=== PATIENT | male | born 1960 | race Caucasian/White ===

== ENCOUNTER 2019-03-15 21:49 | Emergency (ER) | payer SELFPAY ==
[2019-03-15 22:00] VITALS: BP 146/79; PULSE 72; TEMP 98.5; BMI 35.0
--- NOTE | 2019-03-15 22:02 | PDOC ---
History of Present Illness - General Chief Complaint: Injury Stated Complaint: LH 1ST FINGER INJURY Time Seen by Provider: 03/15/19 21:51 - History of Present Illness Initial Comments: This 58-year-old man with no significant past medical history presents with injury to his left thumb. 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 Bleeding was persistent despite direct pressure on the wound. No other injury sustained. Patient last tetanus prophylaxis was 4 years ago, also a mandoline injury of the left hand. No previous history of resistant organism colonization or infection. Patient denies difficulty in wound healing or easy bleeding/bruising. Past History - Past Medical History Allergies/Adverse Reactions: Allergies Allergy/AdvReac Type Severity Reaction Status Date / Time No Known Allergies Allergy Unverified 03/15/19 21:50 Home Medications: Ambulatory Orders Fluticasone Prop 0.05% Nasal [Flonase -] 1 spray NS PRN PRN 03/15/19 COPD: No - Immunization History Immunization Up to Date: Yes - Suicide/Smoking/Psychosocial Hx Smoking History: Never smoked Review of Systems - Review of Systems Able to Perform ROS?: Yes Comments:: 12 point review of systems is negative except for what is noted in the history of present illness *Physical Exam - Vital Signs Last Vital Signs Temp Pulse Resp BP Pulse Ox 98.5 F 72 16 146/79 97 03/15/19 21:51 03/15/19 21:51 03/15/19 21:51 03/15/19 21:51 03/15/19 21:51 - Physical Exam Comments: GENERAL: Adult male, alert and oriented 3, in no acute distress HEAD: Normal with no signs of trauma. EYES: PERRLA, EOMI, sclera anicteric, conjunctiva clear. EXTREMITIES: Left thumb:1 cm by half centimeter full-thickness skin avulsion, ulnar aspect of the distal phalanx with active bleeding No damage to nail fold/nailplate/ nail bed Full motor and sensory functioning intact in the digit Extremity exam is otherwise normal NEUROLOGICAL: Cranial nerves II through XII grossly intact. Normal speech. No focal neurological deficits. MUSCULOSKELETAL: Back non-tender to palpation, no CVA tenderness Procedures - Laceration/Wound Repair Left Distal Dorsal 1st digit Wound Length: to 2.5 cm Wound Explored: clean Irrigated w/ Saline: Yes Progress: 1 cm by half centimeter oval-shaped skin avulsion wound of the distal aspect of the left thumb thoroughly irrigated with sterile normal saline (approximately 200 ml). Using sterile technique, small rectanglar piece of Surgicel placed on wound and direct pressure applied. After partial hemostasis, small rectangular piece of Xeroform with bacitracin ointment applied onto the Surgicel. Small gauze pad applied and direct pressure placed on wound again. After hemostasis achieved, wound covered with another sterile gauze pad followed by gauze roll dressing. Patient tolerated procedure well Medical Decision Making - Medical Decision Making This 58-year-old man with no significant past medical history and no history of wound healing difficulties presents with small skin avulsion injury to the distal left thumb. No other injury sustained. Patient is up-to-date on his tetanus prophylaxis. Wound care as noted above. Patient discharged with instructions to keep the areas dry as possible. The patient states that he will use a waterproof fingercot at work (states that he does not wash dishes or otherwise immerse his hands at water at work routinely) . He should keep his hand elevated as much as possible especially for the first 48 hours. When patient had previous skin avulsion injury 4 years ago, he had wound check in 48 hours at the [place] [facility] in [place]. He has been advised to have the wound inspected the next 2-3 days, either at the [place] [facility] or, if this is not possible, to return here for wound check. If, he has increase in pain or recurrent bleeding prior to this, he should return to the ER *DC/Admit/Observation/Transfer Diagnosis at time of Disposition: Avulsion of skin of left thumb Qualifiers: Encounter type: initial encounter Qualified Code(s): S61.002A - Unspecified open wound of left thumb without damage to nail, initial encounter - Discharge Dispostion Disposition: HOME Condition at time of disposition: Stable - Referrals - Patient Instructions Printed Discharge Instructions: DI for Avulsion Laceration (Not Requiring Sutures) Additional Instructions: Keep left hand at heart level or above is much as possible over the next 2 days Keep left thumb dressing in place as dry as possible until seen for wound check on March 18 Have wound check at the [place] [facility] on March 18 as discussed; can return here for wound check if not seen at clinic Return to ER if you have persistent, severe pain or recurrent bleeding from wound Return to ER if you have fever/chills - Post Discharge Activity
== END 2019-03-15 23:31 | disposition home or self-care (01) ==
LOC: FER 21:49
PROC: 0JJW0ZZ Inspection of Lower Extremity Subcutaneous Tissue and Fascia, Open Approach (ICD-10-PCS; principal; 2019-03-15)
DX: S61.002A Unspecified open wound of left thumb without damage to nail, initial encounter (principal); W31.89XA Contact with other specified machinery, initial encounter; Y93.G1 Activity, food preparation and clean up; Y92.89 Other specified places as the place of occurrence of the external cause; Y99.0 Civilian activity done for income or pay
CPT/HCPCS: 99282-25